=== PATIENT | female | born 1950 | race Caucasian/White ===

== ENCOUNTER 2018-07-26 22:54 | Emergency (ER) | payer MEDICARE, OTHER ==
[~2018-07-26] VITALS: Ht 170.2 cm; Wt 61.2 kg
[~2018-07-26 22:54] MED LIST: ASPI81TA31 PO; LEVO100T PO; SIMVASTATIN PO
--- NOTE | 2018-07-26 23:33 | NUR ---
Dr. Hernandez at bedside for MSE.
[2018-07-26 23:59] LABS: CREATININE 0.7 mg/dL (0.6-1.3); POTASSIUM 4.2 mmol/L (3.5-5.1)
[2018-07-27 00:01] LABS: BASOPHILS # (AUTO) 0.1 K/uL (0.0-8.0); BASOPHILS % (AUTO) 0.9 % (0.0-2.0); EOSINOPHILS # (AUTO) 0.3 K/uL (0.0-0.7); EOSINOPHILS % (AUTO) 4.9 % (0.0-7.0); HEMATOCRIT 37.3 % (31.2-41.9); HEMOGLOBIN 12.6 g/dL (10.9-14.3); LYMPHOCYTES # (AUTO) 1.8 K/uL (20.0-40.0); LYMPHOCYTES % (AUTO) 29.3 % (20.5-51.5); MEAN CORPUSCULAR HEMOGLOBIN 30.8 uug (24.7-32.8); MEAN CORPUSCULAR HGB CONC 34 g/dL (32.3-35.6); MEAN CORPUSCULAR VOLUME 91.1 fL (75.5-95.3); MONOCYTES # (AUTO) 0.6 K/uL (2.0-10.0); MONOCYTES % (AUTO) 10.7 % (0.0-11.0); NEUTROPHILS # (AUTO) 3.3 K/uL (1.8-8.9); NEUTROPHILS % (AUTO) 54.2 % (38.5-71.5); PLATELET COUNT (AUTO) 177 K/uL (179-408); RED BLOOD CELL COUNT(AUTO) 4.09 MIL/uL (3.63-4.92); WHITE BLOOD COUNT (AUTO) 6.1 K/uL (3.8-11.8)
[2018-07-27 00:05] LABS: BILIRUBIN,DIRECT 0.1 mg/dL (0.0-0.2); BILIRUBIN,TOTAL 0.3 mg/dL (0.2-1.0); TOTAL PROTEIN, SERUM 6.7 g/dL (6.4-8.2)
--- NOTE | 2018-07-27 00:39 | NUR ---
Patient discharged to home in stable conditon. Written and verbal after care instructions given. Patient verbalizes understanding of instructions. PT ambulated out of ER with steady gait, no acute signs of distress, VSS, all belongings taken.
[2018-07-27 00:42] VITALS: BP 111/71
== END 2018-07-27 00:43 | disposition home or self-care (01) ==
LOC: ER 22:57
DX: L03.113 Cellulitis of right upper limb (principal); T50.Z95A Adverse effect of other vaccines and biological substances, initial encounter; E78.5 Hyperlipidemia, unspecified; E03.9 Hypothyroidism, unspecified; F17.200 Nicotine dependence, unspecified, uncomplicated; Z91.040 Latex allergy status; Z88.8 Allergy status to other drugs, medicaments and biological substances; Z88.5 Allergy status to narcotic agent; Z79.82 Long term (current) use of aspirin; Z79.899 Other long term (current) drug therapy; Y92.89 Other specified places as the place of occurrence of the external cause
CPT/HCPCS: 36415; 83605; 85025; 87040; A4663

== ENCOUNTER 2022-09-05 11:07 | Emergency (ER) | payer MEDICARE, OTHER ==
[~2022-09-05] VITALS: Ht 170.2 cm; Wt 59.9 kg
--- NOTE | 2022-09-05 11:55 | NUR ---
PT IN NAD; VSS. C/C OF S/P MECHANICAL FALL LAST NIGHT. REPORTS OF PAIN ON BILAT. KNEES 4/10 SHARP/DULL WORSE WITH ACTIVITY. RT KNEE POST OP X 1 WK AGO.
--- NOTE | 2022-09-05 11:57 | NUR ---
LOW RAW SUGAR CUTTER AT BEDSIDE
[2022-09-05 13:15] VITALS: BP 127/74
--- NOTE | 2022-09-05 13:15 | NUR ---
Patient discharged to home in stable condition. Written and verbal after care instructions given. Patient verbalizes understanding of instructions. Stressed follow up or return to ER for worsening s/s.
== END 2022-09-05 13:16 | disposition home or self-care (01) ==
LOC: ER 11:07
DX: M25.562 Pain in left knee (principal); M25.561 Pain in right knee; M25.461 Effusion, right knee; F17.210 Nicotine dependence, cigarettes, uncomplicated; Z88.5 Allergy status to narcotic agent; Z88.8 Allergy status to other drugs, medicaments and biological substances; Z91.040 Latex allergy status; Z79.82 Long term (current) use of aspirin; Z79.899 Other long term (current) drug therapy; W18.39XA Other fall on same level, initial encounter; Y93.89 Activity, other specified; Y92.89 Other specified places as the place of occurrence of the external cause; Y99.8 Other external cause status
CPT/HCPCS: A4663